=== PATIENT | male | born 1965 | race Caucasian/White ===

== ENCOUNTER 2023-07-17 03:16 | Emergency (ER) | payer MEDICARE, OTHER ==
[~2023-07-17] VITALS: Ht 175.3 cm; Wt 127.0 kg
[~2023-07-17 03:16] MED LIST: APIX5TAB PO; ASPI-1169 PO; ATOR40TA PO; FURO-144 PO; LISI10TA29 PO
[2023-07-17 03:18] VITALS: BP 170/77; TEMP 97.4; O2SAT 96
[2023-07-17 04:01] LABS: BASOPHILS % (AUTO) 0.6 % (0.0-2.0); EOSINOPHILS # (AUTO) 0.3 K/uL (0.0-0.7); EOSINOPHILS % (AUTO) 3.8 % (0.0-6.0); HEMATOCRIT 43 % (39-51); HEMOGLOBIN 13.7 g/dL (13.5-17.5); LYMPHOCYTES # (AUTO) 1.6 K/uL (0.8-4.8); LYMPHOCYTES % (AUTO) 20.7 % (20.0-44.0); MEAN CORPUSCULAR HEMOGLOBIN 25 PG (26.0-33.0); MEAN CORPUSCULAR HGB CONC 32 g/dl (31.0-36.0); MEAN CORPUSCULAR VOLUME 78 fL (80-96); MONOCYTES # (AUTO) 0.6 K/uL (0.1-1.30); MONOCYTES % (AUTO) 7.6 % (2.0-12.0); NEUTROPHILS # (AUTO) 5.3 K/uL (1.8-8.9); NEUTROPHILS % (AUTO) 67.3 % (43.0-81.0); PLATELET COUNT (AUTO) 371 K/uL (150-450); RED BLOOD CELL COUNT(AUTO) 5.47 MIL/uL (4.5-6.0); RED CELL DISTRIBUTION WIDTH 23.7 % (11.5-15.0); WHITE BLOOD COUNT (AUTO) 7.8 K/uL (4.3-11.0)
[2023-07-17 04:17] LABS: ALANINE AMINOTRANSFERASE 21 U/L (12-78); ALBUMIN 3.2 g/dL (3.4-5.0); ALCOHOL, BLOOD < 3 mg/dL (0-10); ALKALINE PHOSPHATASE 153 U/L (46-116); ASPARTATE AMINOTRANSFERASE 24 U/L (15-37); BILIRUBIN,TOTAL 1.1 mg/dL (0.2-1.0); CALCIUM, SERUM 8.8 mg/dL (8.5-10.1); CARBON DIOXIDE 23 mmol/L (21-32); CHLORIDE 103 mmol/L (98-107); CREATININE 0.6 mg/dL (0.6-1.3); GLUCOSE 106 mg/dL (74-106); POTASSIUM 3.7 mmol/L (3.5-5.1); SODIUM SERUM 135 mmol/L (136-145); TOTAL PROTEIN, SERUM 8.6 g/dL (6.4-8.2); UREA NITROGEN, BLOOD 22 mg/dL (7-18)
[2023-07-17] MEDS ORDERED: FUROSEMIDE 40 MG TABLET ONE (05:59)
[2023-07-17] MEDS ORDERED: FUROSEMIDE 40 MG/4 ML VIAL IV ONE (06:00)
[2023-07-17] MEDS ORDERED: FUROSEMIDE 40 MG TABLET PO ONE (06:00)
== END 2023-07-17 07:12 | disposition left against medical advice (07) ==
LOC: ER 03:18
DX: I11.0 Hypertensive heart disease with heart failure (principal); I50.9 Heart failure, unspecified; E11.9 Type 2 diabetes mellitus without complications; Z88.8 Allergy status to other drugs, medicaments and biological substances; Z59.00 Homelessness unspecified
CPT/HCPCS: 36415; 71045-TC; 80053-TC; 83880; 84484-TC; 85025-TC; 87081-TC; G0480

== ENCOUNTER 2024-03-03 11:11 | Inpatient (IN) | payer OTHER ==
[~2024-03-03] VITALS: Ht 172.7 cm; Wt 154.2 kg
[2024-03-03 13:11] LABS: ALANINE AMINOTRANSFERASE 21 U/L (12-78); ALBUMIN 3.1 g/dL (3.4-5.0); ALKALINE PHOSPHATASE 155 U/L (46-116); ASPARTATE AMINOTRANSFERASE 24 U/L (15-37); BASOPHILS # (AUTO) 0.1 K/uL (0.0-0.2); BASOPHILS % (AUTO) 0.6 % (0.0-2.0); BILIRUBIN,DIRECT 0.4 mg/dL (0.0-0.2); BILIRUBIN,TOTAL 0.8 mg/dL (0.2-1.0); CARBON DIOXIDE 30 mmol/L (21-32); CHLORIDE 103 mmol/L (98-107); EOSINOPHILS # (AUTO) 0.7 K/uL (0.0-0.7); EOSINOPHILS % (AUTO) 7.2 % (0.0-6.0); GLUCOSE 78 mg/dL (74-106); HEMATOCRIT 46 % (39-51); HEMOGLOBIN 14.4 g/dL (13.5-17.5); LYMPHOCYTES % (AUTO) 9.7 % (20.0-44.0); MEAN CORPUSCULAR HEMOGLOBIN 26 PG (26.0-33.0); MEAN CORPUSCULAR HGB CONC 32 g/dl (31.0-36.0); MEAN CORPUSCULAR VOLUME 81 fL (80-96); MONOCYTES # (AUTO) 0.8 K/uL (0.1-1.30); MONOCYTES % (AUTO) 8.3 % (2.0-12.0); NEUTROPHILS # (AUTO) 7.6 K/uL (1.8-8.9); NEUTROPHILS % (AUTO) 74.2 % (43.0-81.0); NT-PRO BNP 10914 pg/mL (0-125); PLATELET COUNT (AUTO) 297 K/uL (150-450); POTASSIUM 3.7 mmol/L (3.5-5.1); SODIUM SERUM 141 mmol/L (136-145); TOTAL PROTEIN, SERUM 8.7 g/dL (6.4-8.2); UREA NITROGEN, BLOOD 19 mg/dL (7-18); WHITE BLOOD COUNT (AUTO) 10.2 K/uL (4.3-11.0)
[2024-03-03] MEDS ORDERED: FUROSEMIDE 40 MG/4 ML VIAL ONE (14:55)
[2024-03-03] MEDS ORDERED: CLOPIDOGREL BISULFATE 75 MG TABLET ONE (14:58)
[2024-03-03] MEDS: FUROSEMIDE 40 MG/4 ML VIAL IV ONE (14:58)
[2024-03-03] MEDS: CLOPIDOGREL BISULFATE 75 MG TABLET PO ONE (15:22)
[2024-03-03] MEDS ORDERED: GUAI-717 PO (15:26)
[2024-03-03] MEDS ORDERED: OLME20TA23 PO (15:26)
[2024-03-03] MEDS ORDERED: AMIO200T5 PO (15:26)
[2024-03-03] MEDS ORDERED: METO25TA4 PO (15:26)
[2024-03-03] MEDS ORDERED: CLOP75TA15 PO (15:26)
[2024-03-03] MEDS ORDERED: ISOS30TA86 PO (15:26)
[2024-03-03] MEDS ORDERED: EMPA10TA PO (15:26)
[2024-03-03] MEDS ORDERED: ACETAMINOPHEN 325 MG TABLET PO PRN (15:30)
[2024-03-03] MEDS ORDERED: NITROGLYCERIN 0.4 MG/TAB BOTTLE SL PRN (15:30)
[2024-03-03] MEDS ORDERED: Z GUARD REMEDY 4 OZ OINT TP PRN (15:30)
[2024-03-03] MEDS ORDERED: MAG HYDROX/AL HYDROX/SIMETH 30 ML UDC PO PRN (15:30)
[2024-03-03] MEDS ORDERED: MAGNESIUM HYDROXIDE 30 ML UDC PO PRN (15:30)
[2024-03-03] MEDS ORDERED: ONDANSETRON HCL/PF 4 MG/2 ML VIAL IVP PRN (15:30)
[2024-03-03 16:25] VITALS: BP 120/81; TEMP 97.5; O2SAT 97
[2024-03-03] MEDS: APIXABAN 5 MG TABLET PO SCH (16:39)
[2024-03-03 20:00] VITALS: BP 116/70; TEMP 97.5; O2SAT 97
[2024-03-03] MEDS: ATORVASTATIN 40 MG TABLET PO SCH (22:00)
[2024-03-04] VITALS: BP 152/67; TEMP 97.5; O2SAT 96
[2024-03-04 04:00] VITALS: BP 145/79; TEMP 97.5; O2SAT 96
[2024-03-04 07:48] LABS: BASOPHILS # (AUTO) 0.1 K/uL (0.0-0.2); BASOPHILS % (AUTO) 0.7 % (0.0-2.0); EOSINOPHILS # (AUTO) 0.8 K/uL (0.0-0.7); EOSINOPHILS % (AUTO) 9.7 % (0.0-6.0); HEMATOCRIT 42 % (39-51); HEMOGLOBIN 13.4 g/dL (13.5-17.5); LYMPHOCYTES % (AUTO) 10.9 % (20.0-44.0); MEAN CORPUSCULAR HEMOGLOBIN 26 PG (26.0-33.0); MEAN CORPUSCULAR HGB CONC 32 g/dl (31.0-36.0); MEAN CORPUSCULAR VOLUME 80 fL (80-96); MONOCYTES # (AUTO) 0.5 K/uL (0.1-1.30); MONOCYTES % (AUTO) 6.1 % (2.0-12.0); NEUTROPHILS # (AUTO) 6.3 K/uL (1.8-8.9); NEUTROPHILS % (AUTO) 72.6 % (43.0-81.0); PLATELET COUNT (AUTO) 287 K/uL (150-450); RED CELL DISTRIBUTION WIDTH 18.2 % (11.5-15.0); WHITE BLOOD COUNT (AUTO) 8.7 K/uL (4.3-11.0)
[2024-03-04 08:00] VITALS: BP 120/80; TEMP 98.1; O2SAT 96
[2024-03-04 08:43] LABS: CALCIUM, SERUM 8.9 mg/dL (8.5-10.1); MAGNESIUM 2.3 mg/dL (1.8-2.4); PHOSPHORUS 4.2 mg/dL (2.5-4.9); POTASSIUM 3.9 mmol/L (3.5-5.1)
[2024-03-04] MEDS: FUROSEMIDE 40 MG TABLET PO SCH (09:00)
[2024-03-04] MEDS: ASPIRIN 81 MG TAB.CHEW PO SCH (09:30)
[2024-03-04] MEDS: LISINOPRIL (10MG) 10 MG TABLET PO SCH (09:30)
[2024-03-04] MEDS: METOPROLOL SUCCINATE 25 MG TAB.SR.24H PO SCH (10:30)
[2024-03-04] MEDS: CLOPIDOGREL BISULFATE 75 MG TABLET PO SCH (11:46)
[2024-03-04] MEDS: ISOSORBIDE MONONITRATE (30MG) 30 MG TAB.SR.24H PO SCH (11:46)
[2024-03-04] MEDS: EMPAGLIFLOZIN 10 MG TABLET PO SCH (11:47)
[2024-03-04 12:00] VITALS: BP 106/46; TEMP 98.1; O2SAT 96
[2024-03-04 16:00] VITALS: BP 104/64; TEMP 98.1; O2SAT 96
[2024-03-04 20:00] VITALS: BP 91/80; TEMP 98.1; O2SAT 96
[2024-03-05] VITALS: BP_DIAS 80; TEMP 98.1; O2SAT 96
[2024-03-05 04:00] VITALS: TEMP 98.1; O2SAT 96
[2024-03-05 08:00] VITALS: BP 112/70; TEMP 97.9; O2SAT 92
[2024-03-05] MEDS: ARIPIPRAZOLE 5 MG TABLET PO SCH (11:40)
[2024-03-05 12:00] VITALS: BP 112/70; TEMP 97.9; O2SAT 92
[2024-03-05 16:00] VITALS: BP 112/60; TEMP 98.7; O2SAT 91
[2024-03-05 20:00] VITALS: BP 144/77; TEMP 98.6; O2SAT 95
[2024-03-06 04:00] VITALS: BP 142/63; TEMP 98.1; O2SAT 96
[2024-03-06 08:30] VITALS: BP 130/72; TEMP 97.3; O2SAT 93
[2024-03-06] MEDS: SERTRALINE HCL 50 MG TABLET PO SCH (08:33)
[2024-03-06 09:55] LABS: BASOPHILS # (AUTO) 0.1 K/uL (0.0-0.2); BASOPHILS % (AUTO) 0.8 % (0.0-2.0); EOSINOPHILS # (AUTO) 0.6 K/uL (0.0-0.7); EOSINOPHILS % (AUTO) 8.2 % (0.0-6.0); HEMATOCRIT 43 % (39-51); HEMOGLOBIN 13.7 g/dL (13.5-17.5); LYMPHOCYTES # (AUTO) 0.8 K/uL (0.8-4.8); LYMPHOCYTES % (AUTO) 11.1 % (20.0-44.0); MEAN CORPUSCULAR HEMOGLOBIN 26 PG (26.0-33.0); MEAN CORPUSCULAR HGB CONC 32 g/dl (31.0-36.0); MEAN CORPUSCULAR VOLUME 79 fL (80-96); MONOCYTES # (AUTO) 0.4 K/uL (0.1-1.30); MONOCYTES % (AUTO) 5.8 % (2.0-12.0); NEUTROPHILS # (AUTO) 5.3 K/uL (1.8-8.9); NEUTROPHILS % (AUTO) 74.1 % (43.0-81.0); PLATELET COUNT (AUTO) 288 K/uL (150-450); RED BLOOD CELL COUNT(AUTO) 5.36 MIL/uL (4.5-6.0); WHITE BLOOD COUNT (AUTO) 7.2 K/uL (4.3-11.0)
[2024-03-06 10:09] LABS: CALCIUM, SERUM 8.9 mg/dL (8.5-10.1); MAGNESIUM 2.4 mg/dL (1.8-2.4); PHOSPHORUS 3.4 mg/dL (2.5-4.9); POTASSIUM 3.9 mmol/L (3.5-5.1)
[2024-03-06 12:00] VITALS: BP 132/64
[2024-03-06] MEDS ORDERED: APIX5TAB PO (12:54)
[2024-03-06] MEDS ORDERED: ARIP5TAB10 PO (12:54)
[2024-03-06] MEDS ORDERED: LISI10TA29 PO (12:54)
== END 2024-03-06 16:10 | disposition home or self-care (01) | DRG 291 ==
LOC: ER 11:20 → TELE1 15:05 → MEDSG1 03-05 10:00
PROVIDERS: ADMIT Internal Medicine; ATTEND Student in an Organized Health Care Education/Training Program
DX: I11.0 Hypertensive heart disease with heart failure (principal); E43 Unspecified severe protein-calorie malnutrition; I50.43 Acute on chronic combined systolic (congestive) and diastolic (congestive) heart failure; I48.92 Unspecified atrial flutter; Z68.43 Body mass index [BMI] 50.0-59.9, adult; Z59.00 Homelessness unspecified; F33.3 Major depressive disorder, recurrent, severe with psychotic symptoms; F43.10 Post-traumatic stress disorder, unspecified; I48.91 Unspecified atrial fibrillation; I87.309 Chronic venous hypertension (idiopathic) without complications of unspecified lower extremity; I87.2 Venous insufficiency (chronic) (peripheral); Z66 Do not resuscitate; E11.9 Type 2 diabetes mellitus without complications; E78.5 Hyperlipidemia, unspecified; Z88.1 Allergy status to other antibiotic agents; Z79.82 Long term (current) use of aspirin; Z79.01 Long term (current) use of anticoagulants; Z79.899 Other long term (current) drug therapy; E66.01 Morbid (severe) obesity due to excess calories; E88.09 Other disorders of plasma-protein metabolism, not elsewhere classified; I25.2 Old myocardial infarction; I42.0 Dilated cardiomyopathy; I35.2 Nonrheumatic aortic (valve) stenosis with insufficiency; G47.33 Obstructive sleep apnea (adult) (pediatric); I25.10 Atherosclerotic heart disease of native coronary artery without angina pectoris; Z79.84 Long term (current) use of oral hypoglycemic drugs
CPT/HCPCS: 36415; 71045-TC; 80048-TC; 80076-TC; 83735-TC; 83880; 84100-TC; 84484-TC; 85025-TC; 93307-TC; 97110-TC; 97116-TC; 97530-TC; 98960; G0378; J1940

== ENCOUNTER 2024-03-20 05:53 | Inpatient (IN) | payer MEDICARE, OTHER ==
[~2024-03-20] VITALS: Ht 193 cm; Wt 163.8 kg
[2024-03-20] VITALS (11 sets, daily range): BP systolic 101–123; BP diastolic 69–75; TEMP 97.5–98.7; O2SAT 96–100
[~2024-03-20 05:53] MED LIST changes: +AMIO200T5 PO; +ARIP5TAB10 PO; -ASPI-1169 PO; +CLOP75TA15 PO; +EMPA10TA PO; +GUAI-717 PO; +ISOS30TA86 PO; +METO25TA4 PO; +OLME20TA23 PO
[2024-03-20 07:34] LABS: ALANINE AMINOTRANSFERASE 17 U/L (12-78); ALBUMIN 2.9 g/dL (3.4-5.0); ALKALINE PHOSPHATASE 113 U/L (46-116); ASPARTATE AMINOTRANSFERASE 26 U/L (15-37); BASOPHILS % (AUTO) 0.4 % (0.0-2.0); BILIRUBIN,DIRECT 0.4 mg/dL (0.0-0.2); CALCIUM, SERUM 8.6 mg/dL (8.5-10.1); CARBON DIOXIDE 30 mmol/L (21-32); CHLORIDE 106 mmol/L (98-107); CREATININE 0.9 mg/dL (0.6-1.3); EOSINOPHILS # (AUTO) 0.4 K/uL (0.0-0.7); EOSINOPHILS % (AUTO) 4.8 % (0.0-6.0); GLUCOSE 96 mg/dL (74-106); HEMATOCRIT 43 % (39-51); HEMOGLOBIN 13.6 g/dL (13.5-17.5); MEAN CORPUSCULAR HEMOGLOBIN 25 PG (26.0-33.0); MEAN CORPUSCULAR HGB CONC 32 g/dl (31.0-36.0); MEAN CORPUSCULAR VOLUME 81 fL (80-96); MONOCYTES # (AUTO) 0.6 K/uL (0.1-1.30); MONOCYTES % (AUTO) 6.6 % (2.0-12.0); NEUTROPHILS # (AUTO) 6.8 K/uL (1.8-8.9); NEUTROPHILS % (AUTO) 77.2 % (43.0-81.0); NT-PRO BNP 13641 pg/mL (0-125); PLATELET COUNT (AUTO) 250 K/uL (150-450); POTASSIUM 4.6 mmol/L (3.5-5.1); RED BLOOD CELL COUNT(AUTO) 5.34 MIL/uL (4.5-6.0); RED CELL DISTRIBUTION WIDTH 18.9 % (11.5-15.0); SODIUM SERUM 141 mmol/L (136-145); TOTAL PROTEIN, SERUM 7.8 g/dL (6.4-8.2); UREA NITROGEN, BLOOD 17 mg/dL (7-18); WHITE BLOOD COUNT (AUTO) 8.8 K/uL (4.3-11.0)
[2024-03-20] MEDS ORDERED: SERT50TA12 PO (07:57)
[2024-03-20] MEDS ORDERED: IPRATROPIUM NEB FS 0.5 MG/2.5 ML AMPUL.NEB ONE (07:57)
[2024-03-20] MEDS ORDERED: ALBUTEROL FS 2.5 MG/3 ML VIAL.NEB ONE (07:57)
[2024-03-20] MEDS: ALBUTEROL FS 2.5 MG/3 ML VIAL.NEB NEB ONE ×2 (08:03)
[2024-03-20] MEDS: IPRATROPIUM NEB FS 0.5 MG/2.5 ML AMPUL.NEB NEB ONE (08:03)
[2024-03-20] MEDS ORDERED: FUROSEMIDE 40 MG/4 ML VIAL ONE (08:04)
[2024-03-20] MEDS: FUROSEMIDE 40 MG/4 ML VIAL IV ONE ×2 (08:10→20:41)
[2024-03-20] MEDS ORDERED: hydrALAZINE HCL IV 20 MG VIAL IV PRN (08:30)
[2024-03-20] MEDS ORDERED: ONDANSETRON HCL/PF 4 MG/2 ML VIAL IVP PRN (08:30)
[2024-03-20] MEDS ORDERED: ACETAMINOPHEN 325 MG TABLET PO PRN (08:30)
[2024-03-20] MEDS ORDERED: ALBUTEROL FS 2.5 MG/0.5 ML VIAL.NEB NEB PRN (08:30)
[2024-03-20] MEDS ORDERED: IPRATROPIUM/ALBUTEROL INHALER IH SCH (12:00)
[2024-03-20] MEDS: ARIPIPRAZOLE 5 MG TABLET PO SCH (12:09)
[2024-03-20] MEDS: LISINOPRIL (10MG) 10 MG TABLET PO SCH (12:09)
[2024-03-20] MEDS: METOPROLOL SUCCINATE 25 MG TAB.SR.24H PO SCH (12:11)
[2024-03-20] MEDS: GUAIFENESIN/D-METHORPHAN HB 5 ML UDC PO PRN (12:11)
[2024-03-20] MEDS: APIXABAN 5 MG TABLET PO SCH (12:11)
[2024-03-20] MEDS: EMPAGLIFLOZIN 10 MG TABLET PO SCH (12:14)
[2024-03-20] MEDS: ISOSORBIDE MONONITRATE (30MG) 30 MG TAB.SR.24H PO SCH (13:06)
[2024-03-20] MEDS: FUROSEMIDE 40 MG/4 ML VIAL IV SCH (13:06)
[2024-03-20] MEDS: IPRATROPIUM NEB FS 0.5 MG/2.5 ML AMPUL.NEB NEB SCH (13:30)
[2024-03-20] MEDS: ALBUTEROL FS 2.5 MG/3 ML VIAL.NEB NEB SCH (13:43)
[2024-03-20] MEDS: BENZONATATE 100 MG CAPSULE PO PRN (20:41)
[2024-03-20] MEDS: ATORVASTATIN 40 MG TABLET PO SCH (22:00)
[2024-03-21] VITALS (13 sets, daily range): BP systolic 98–119; BP diastolic 49–101; TEMP 97.9–98.4; O2SAT 94–100
[2024-03-21] MEDS: MORPHINE SULFATE INJ 2 MG/ML DISP.SYRIN IV PRN (02:52)
[2024-03-21 06:35] LABS: BASOPHILS % (AUTO) 0.3 % (0.0-2.0); EOSINOPHILS # (AUTO) 0.3 K/uL (0.0-0.7); EOSINOPHILS % (AUTO) 3.4 % (0.0-6.0); HEMATOCRIT 39 % (39-51); HEMOGLOBIN 12.8 g/dL (13.5-17.5); LYMPHOCYTES # (AUTO) 0.7 K/uL (0.8-4.8); LYMPHOCYTES % (AUTO) 7.9 % (20.0-44.0); MEAN CORPUSCULAR HEMOGLOBIN 26 PG (26.0-33.0); MEAN CORPUSCULAR HGB CONC 33 g/dl (31.0-36.0); MEAN CORPUSCULAR VOLUME 80 fL (80-96); MONOCYTES # (AUTO) 0.5 K/uL (0.1-1.30); MONOCYTES % (AUTO) 5.3 % (2.0-12.0); NEUTROPHILS # (AUTO) 7.1 K/uL (1.8-8.9); NEUTROPHILS % (AUTO) 83.1 % (43.0-81.0); PLATELET COUNT (AUTO) 215 K/uL (150-450); RED BLOOD CELL COUNT(AUTO) 4.89 MIL/uL (4.5-6.0); RED CELL DISTRIBUTION WIDTH 18.4 % (11.5-15.0); WHITE BLOOD COUNT (AUTO) 8.5 K/uL (4.3-11.0)
[2024-03-21 06:42] LABS: ALBUMIN 2.7 g/dL (3.4-5.0); BILIRUBIN,TOTAL 0.8 mg/dL (0.2-1.0); CALCIUM, SERUM 8.4 mg/dL (8.5-10.1); CREATININE 1.2 mg/dL (0.6-1.3); MAGNESIUM 2.1 mg/dL (1.8-2.4); PHOSPHORUS 5.6 mg/dL (2.5-4.9); POTASSIUM 4.1 mmol/L (3.5-5.1); TOTAL PROTEIN, SERUM 7.3 g/dL (6.4-8.2)
[2024-03-21] MEDS: SERTRALINE HCL 25 MG TABLET PO SCH (09:48)
[2024-03-21] MEDS: CLOTRIMAZOLE 1% 15 GM TUBE TP SCH (13:12)
[2024-03-21] MEDS: TRIAMCINOLONE ACETONIDE 0.1% CR 15 GM TUBE TP SCH (13:13)
[2024-03-22] VITALS (9 sets, daily range): BP systolic 102–119; BP diastolic 69–77; TEMP 97.7–97.9; O2SAT 94–98
[2024-03-22] MEDS: FUROSEMIDE 40 MG/4 ML VIAL IV SCH (09:00)
[2024-03-22 09:52] LABS: THYROID STIMULATING HORMONE 0.88 uIU/mL (0.358-3.74)
[2024-03-22] MEDS: POTASSIUM CHLORIDE 20 MEQ TAB.PRT.SR PO SCH (09:55)
[2024-03-22 11:18] LABS: CALCIUM, SERUM 8.6 mg/dL (8.5-10.1); CREATININE 0.9 mg/dL (0.6-1.3); POTASSIUM 4.2 mmol/L (3.5-5.1)
[2024-03-22 11:24] LABS: ALBUMIN 2.6 g/dL (3.4-5.0); BILIRUBIN,TOTAL 0.9 mg/dL (0.2-1.0); TOTAL PROTEIN, SERUM 7.1 g/dL (6.4-8.2)
[2024-03-22 15:44] LABS: APPEARANCE,URINE CLEAR (CLEAR); BILIRUBIN,URINE NEGATIVE (NEGATIVE); BLOOD, URINE NEGATIVE Ery/uL (NEGATIVE); COLOR,URINE YELLOW (YELLOW); KETONES,URINE NEGATIVE (NEGATIVE); LEUKOCYTE ESTERASE ,URINE NEGATIVE (NEGATIVE); NITRITE, URINE NEGATIVE (NEGATIVE); PROTEIN,URINE 1+ mg/dl (NEGATIVE); UGLUCOSE 3+ mg/dL (NEGATIVE)
[2024-03-22 15:56] LABS: ADD URINE CULTURE NO; BACTERIA,URINE Few /HPF (None Seen); RBC,URINE 0-2 /HPF (0-2); SQUAMOUS EPITHELIAL CELL,UR Few /HPF (None Seen); WBC,URINE 0-2 /HPF (0-3)
[2024-03-22] MEDS: LACTULOSE 10 G/15 ML UDC (PYXIS) PO ONE (18:49)
[2024-03-22] MEDS: POLYETHYLENE GLYCOL 3350 17 GM POWD.PACK PO SCH (21:31)
[2024-03-23] VITALS (10 sets, daily range): BP systolic 121–134; BP diastolic 69–79; TEMP 97.7–98.2; O2SAT 90–99
[2024-03-23 06:14] LABS: BASOPHILS % (AUTO) 0.5 % (0.0-2.0); EOSINOPHILS # (AUTO) 0.2 K/uL (0.0-0.7); HEMATOCRIT 39 % (39-51); HEMOGLOBIN 12.2 g/dL (13.5-17.5); LYMPHOCYTES # (AUTO) 0.6 K/uL (0.8-4.8); LYMPHOCYTES % (AUTO) 7.2 % (20.0-44.0); MEAN CORPUSCULAR HEMOGLOBIN 25 PG (26.0-33.0); MEAN CORPUSCULAR HGB CONC 31 g/dl (31.0-36.0); MEAN CORPUSCULAR VOLUME 80 fL (80-96); MONOCYTES # (AUTO) 0.4 K/uL (0.1-1.30); MONOCYTES % (AUTO) 4.6 % (2.0-12.0); NEUTROPHILS # (AUTO) 6.4 K/uL (1.8-8.9); NEUTROPHILS % (AUTO) 84.7 % (43.0-81.0); PLATELET COUNT (AUTO) 197 K/uL (150-450); RED BLOOD CELL COUNT(AUTO) 4.83 MIL/uL (4.5-6.0); RED CELL DISTRIBUTION WIDTH 18.1 % (11.5-15.0); WHITE BLOOD COUNT (AUTO) 7.6 K/uL (4.3-11.0)
[2024-03-23 06:31] LABS: ALBUMIN 2.7 g/dL (3.4-5.0); BILIRUBIN,TOTAL 0.9 mg/dL (0.2-1.0); CALCIUM, SERUM 8.4 mg/dL (8.5-10.1); CREATININE 0.8 mg/dL (0.6-1.3); MAGNESIUM 2.3 mg/dL (1.8-2.4); PHOSPHORUS 2.7 mg/dL (2.5-4.9); POTASSIUM 4.2 mmol/L (3.5-5.1); TOTAL PROTEIN, SERUM 7.4 g/dL (6.4-8.2)
[2024-03-23] MEDS: DOCUSATE SODIUM 100 MG CAPSULE PO SCH (10:08)
[2024-03-23] MEDS: FUROSEMIDE 40 MG TABLET PO ONE (11:23)
== END 2024-03-23 20:54 | DRG 291 ==
LOC: ER 05:55 → MED 10:02 → TELE 11:03
PROVIDERS: ADMIT Internal Medicine; ATTEND Internal Medicine
DX: I11.0 Hypertensive heart disease with heart failure (principal); E43 Unspecified severe protein-calorie malnutrition; I50.33 Acute on chronic diastolic (congestive) heart failure; I48.92 Unspecified atrial flutter; Z59.00 Homelessness unspecified; Z68.41 Body mass index [BMI] 40.0-44.9, adult; I48.91 Unspecified atrial fibrillation; E11.42 Type 2 diabetes mellitus with diabetic polyneuropathy; E66.01 Morbid (severe) obesity due to excess calories; E78.5 Hyperlipidemia, unspecified; E88.09 Other disorders of plasma-protein metabolism, not elsewhere classified; F43.10 Post-traumatic stress disorder, unspecified; G47.33 Obstructive sleep apnea (adult) (pediatric); Z79.01 Long term (current) use of anticoagulants; Z20.822 Contact with and (suspected) exposure to COVID-19; I35.2 Nonrheumatic aortic (valve) stenosis with insufficiency; I87.2 Venous insufficiency (chronic) (peripheral); I42.9 Cardiomyopathy, unspecified; Z91.199 Patient's noncompliance with other medical treatment and regimen due to unspecified reason; I25.2 Old myocardial infarction; Z66 Do not resuscitate; Z79.84 Long term (current) use of oral hypoglycemic drugs
CPT/HCPCS: 36415; 71045-TC; 80048-TC; 80053-TC; 80061-TC; 80076-TC; 81001; 83735-TC; 83880; 84100-TC; 84439-TC; 84443-TC; 84484-TC; 85025-TC; 87081-TC; 94762-TC; 94799-TC; G0378; J1940; J2270

== ENCOUNTER 2024-05-26 23:36 | Inpatient (IN) | payer MEDICARE, OTHER ==
[~2024-05-26] VITALS: Ht 188 cm; Wt 172.1 kg
[~2024-05-26 23:36] MED LIST changes: -AMIO200T5 PO; -CLOP75TA15 PO; -OLME20TA23 PO; +SERT50TA12 PO
[2024-05-27] MEDS ORDERED: FUROSEMIDE 40 MG/4 ML VIAL ONE (00:41)
[2024-05-27] MEDS: FUROSEMIDE 40 MG/4 ML VIAL IV ONE (00:50)
[2024-05-27 00:51] LABS: BASOPHILS % (AUTO) 0.6 % (0.0-2.0); EOSINOPHILS # (AUTO) 0.1 K/uL (0.0-0.7); EOSINOPHILS % (AUTO) 1.2 % (0.0-6.0); HEMATOCRIT 37 % (39-51); HEMOGLOBIN 11.8 g/dL (13.5-17.5); LYMPHOCYTES # (AUTO) 0.4 K/uL (0.8-4.8); LYMPHOCYTES % (AUTO) 5.5 % (20.0-44.0); MEAN CORPUSCULAR HEMOGLOBIN 25 PG (26.0-33.0); MEAN CORPUSCULAR HGB CONC 32 g/dl (31.0-36.0); MEAN CORPUSCULAR VOLUME 78 fL (80-96); MONOCYTES # (AUTO) 0.3 K/uL (0.1-1.30); MONOCYTES % (AUTO) 4.8 % (2.0-12.0); NEUTROPHILS # (AUTO) 5.7 K/uL (1.8-8.9); NEUTROPHILS % (AUTO) 87.9 % (43.0-81.0); PLATELET COUNT (AUTO) 173 K/uL (150-450); RED BLOOD CELL COUNT(AUTO) 4.76 MIL/uL (4.5-6.0); RED CELL DISTRIBUTION WIDTH 19.5 % (11.5-15.0); WHITE BLOOD COUNT (AUTO) 6.5 K/uL (4.3-11.0)
[2024-05-27 01:13] LABS: ALBUMIN 2.7 g/dL (3.4-5.0); BILIRUBIN,TOTAL 2.2 mg/dL (0.2-1.0); CALCIUM, SERUM 8.4 mg/dL (8.5-10.1); CREATININE 0.9 mg/dL (0.6-1.3); TOTAL PROTEIN, SERUM 7.3 g/dL (6.4-8.2)
[2024-05-27] MEDS ORDERED: MAG HYDROX/AL HYDROX/SIMETH 30 ML UDC PO PRN (04:30)
[2024-05-27] MEDS ORDERED: ONDANSETRON HCL/PF 4 MG/2 ML VIAL IVP PRN (04:30)
[2024-05-27] MEDS ORDERED: NITROGLYCERIN 0.4 MG/TAB BOTTLE SL PRN (04:30)
[2024-05-27] MEDS ORDERED: Z GUARD REMEDY 4 OZ OINT TP PRN (04:30)
[2024-05-27] MEDS ORDERED: ACETAMINOPHEN 325 MG TABLET PO PRN (04:30)
[2024-05-27 08:35] LABS: BASOPHILS % (AUTO) 0.4 % (0.0-2.0); EOSINOPHILS # (AUTO) 0.1 K/uL (0.0-0.7); HEMATOCRIT 38 % (39-51); LYMPHOCYTES # (AUTO) 0.4 K/uL (0.8-4.8); LYMPHOCYTES % (AUTO) 7.2 % (20.0-44.0); MEAN CORPUSCULAR HEMOGLOBIN 25 PG (26.0-33.0); MEAN CORPUSCULAR HGB CONC 32 g/dl (31.0-36.0); MEAN CORPUSCULAR VOLUME 78 fL (80-96); MONOCYTES # (AUTO) 0.3 K/uL (0.1-1.30); MONOCYTES % (AUTO) 5.8 % (2.0-12.0); NEUTROPHILS # (AUTO) 4.3 K/uL (1.8-8.9); NEUTROPHILS % (AUTO) 84.6 % (43.0-81.0); PLATELET COUNT (AUTO) 168 K/uL (150-450); RED BLOOD CELL COUNT(AUTO) 4.86 MIL/uL (4.5-6.0); WHITE BLOOD COUNT (AUTO) 5.1 K/uL (4.3-11.0)
[2024-05-27 08:54] LABS: CALCIUM, SERUM 8.3 mg/dL (8.5-10.1); CARBON DIOXIDE 30 mmol/L (21-32); CHLORIDE 103 mmol/L (98-107); CREATININE 0.9 mg/dL (0.6-1.3); GLUCOSE 90 mg/dL (74-106); MAGNESIUM 1.8 mg/dL (1.8-2.4); PHOSPHORUS 4.2 mg/dL (2.5-4.9); POTASSIUM 3.9 mmol/L (3.5-5.1); SODIUM SERUM 140 mmol/L (136-145); UREA NITROGEN, BLOOD 16 mg/dL (7-18)
[2024-05-27] MEDS ORDERED: ENOXAPARIN SODIUM 40 MG/0.4 ML DISP.SYRIN SQ SCH (09:30)
[2024-05-27] MEDS ORDERED: DEXTROSE 50%-WATER 50 ML DISP.SYRIN IV PRN (09:30)
[2024-05-27] MEDS: FUROSEMIDE 20 MG/2 ML VIAL IV SCH ×2 (09:59→17:29)
[2024-05-27] MEDS: SERTRALINE HCL 50 MG TABLET PO SCH (10:15)
[2024-05-27] MEDS: METOPROLOL SUCCINATE 25 MG TAB.SR.24H PO SCH (10:16)
[2024-05-27] MEDS: LISINOPRIL (10MG) 10 MG TABLET PO SCH (10:16)
[2024-05-27] MEDS: ARIPIPRAZOLE 5 MG TABLET PO SCH (10:16)
[2024-05-27] MEDS: APIXABAN 5 MG TABLET PO SCH (10:20)
[2024-05-27] MEDS: BLOOD SUGAR DIAGNOSTIC 1 EACH STRIP VI SCH (12:00)
[2024-05-27] MEDS: ISOSORBIDE MONONITRATE (30MG) 30 MG TAB.SR.24H PO SCH (13:41)
[2024-05-27 20:00] VITALS: BP 120/61; TEMP 98.1; O2SAT 97
[2024-05-27] MEDS: ATORVASTATIN 40 MG TABLET PO SCH (22:00)
[2024-05-28] VITALS: BP_SYST 123; BP_SYST 128; BP_DIAS 69; TEMP 97.9; O2SAT 96
[2024-05-28 04:00] VITALS: BP 123/70; TEMP 97.9; O2SAT 96
[2024-05-28 06:41] LABS: BASOPHILS % (AUTO) 0.5 % (0.0-2.0); EOSINOPHILS # (AUTO) 0.1 K/uL (0.0-0.7); EOSINOPHILS % (AUTO) 3.3 % (0.0-6.0); HEMATOCRIT 36 % (39-51); HEMOGLOBIN 11.1 g/dL (13.5-17.5); LYMPHOCYTES # (AUTO) 0.4 K/uL (0.8-4.8); LYMPHOCYTES % (AUTO) 9.7 % (20.0-44.0); MEAN CORPUSCULAR HEMOGLOBIN 24 PG (26.0-33.0); MEAN CORPUSCULAR HGB CONC 31 g/dl (31.0-36.0); MEAN CORPUSCULAR VOLUME 78 fL (80-96); MONOCYTES # (AUTO) 0.3 K/uL (0.1-1.30); MONOCYTES % (AUTO) 7.4 % (2.0-12.0); NEUTROPHILS # (AUTO) 3.2 K/uL (1.8-8.9); NEUTROPHILS % (AUTO) 79.1 % (43.0-81.0); PLATELET COUNT (AUTO) 171 K/uL (150-450); RED BLOOD CELL COUNT(AUTO) 4.57 MIL/uL (4.5-6.0); RED CELL DISTRIBUTION WIDTH 19.1 % (11.5-15.0); WHITE BLOOD COUNT (AUTO) 4.1 K/uL (4.3-11.0)
[2024-05-28 07:00] VITALS: BP 114/70; TEMP 97.9; O2SAT 94
[2024-05-28 07:07] LABS: CALCIUM, SERUM 8.1 mg/dL (8.5-10.1); CREATININE 0.9 mg/dL (0.6-1.3); MAGNESIUM 1.8 mg/dL (1.8-2.4); PHOSPHORUS 4.2 mg/dL (2.5-4.9); POTASSIUM 3.8 mmol/L (3.5-5.1)
[2024-05-28] MEDS: PANTOPRAZOLE 40 MG TABLET.DR PO SCH (07:30)
[2024-05-28] MEDS ORDERED: ACET325T53 PO ×2 (09:22)
[2024-05-28] MEDS ORDERED: VITS42.53 TP (09:22)
[2024-05-28] MEDS ORDERED: ASPI-1169 PO (09:22)
[2024-05-28] MEDS ORDERED: MAGN400O6 PO (09:22)
[2024-05-28] MEDS ORDERED: BISA10SU11 RC (09:22)
[2024-05-28] MEDS ORDERED: FURO20TA4 PO (09:22)
[2024-05-28] MEDS ORDERED: ASCO500T10 PO (09:22)
[2024-05-28] MEDS ORDERED: HONE44PA TP (09:22)
[2024-05-28] MEDS ORDERED: SPIR25TA6 PO (09:22)
[2024-05-28] MEDS ORDERED: LOSA25TA27 PO (09:22)
[2024-05-28] MEDS ORDERED: NA P133E RC (09:22)
[2024-05-28] MEDS ORDERED: MULT-213 PO (09:22)
[2024-05-28] MEDS ORDERED: HYDR-4076 PO (09:22)
[2024-05-28] MEDS ORDERED: NITR0.4T48 SL (09:22)
[2024-05-28] MEDS ORDERED: IPRA3AMP23 IH (09:22)
[2024-05-28] MEDS ORDERED: POVI1MED TP (09:22)
[2024-05-28] MEDS ORDERED: ZINC56.713 TP (09:22)
[2024-05-28] MEDS: INSULIN REGULAR, HUMAN 100 UNIT/ML 3 ML VIAL SQ PRN (11:54)
[2024-05-28 12:00] VITALS: BP 103/61; TEMP 98.1; O2SAT 98
[2024-05-28 16:00] VITALS: BP 103/67; TEMP 97.5; O2SAT 97
[2024-05-28] MEDS: MAGNESIUM HYDROXIDE 30 ML UDC PO PRN (16:52)
[2024-05-28 20:00] VITALS: BP 97/60; TEMP 98.1; O2SAT 99
[2024-05-29] VITALS: BP 104/62; TEMP 97.9; O2SAT 98
[2024-05-29 04:00] VITALS: BP_SYST 101; BP_SYST 107; BP_DIAS 67; TEMP 97.7; O2SAT 98
[2024-05-29 08:00] VITALS: BP 125/79; TEMP 97.7; O2SAT 97
[2024-05-29 12:00] VITALS: BP 118/56; TEMP 97.8
[2024-05-29 16:00] VITALS: BP 110/67; TEMP 97.7
[2024-05-29 20:00] VITALS: BP 102/63; TEMP 97.7; O2SAT 96
[2024-05-29] MEDS: *INSULIN REGULAR(HUMULIN R)HUM 100 UNIT/ML VIAL SQ PRN (21:37)
[2024-05-30] VITALS: BP 114/66; TEMP 97.6; O2SAT 98
[2024-05-30] MEDS: IPRATROPIUM/ALBUTEROL INHALER IH SCH
[2024-05-30 04:00] VITALS: BP 119/68; TEMP 97.8; O2SAT 96
[2024-05-30 07:00] VITALS: BP 132/79; TEMP 97.3; O2SAT 97
[2024-05-30 11:30] VITALS: BP 115/59; TEMP 97.5; O2SAT 91
[2024-05-30 16:00] VITALS: BP 130/82; TEMP 97.7; O2SAT 93
[2024-05-30 20:29] VITALS: BP 116/79; TEMP 97.3; O2SAT 98
[2024-05-31 05:48] VITALS: BP 152/90; TEMP 97.5; O2SAT 99
[2024-05-31 08:00] VITALS: BP 145/93; TEMP 98.3; O2SAT 96
[2024-05-31] MEDS ORDERED: FURO-144 PO (10:32)
[2024-05-31 16:00] VITALS: BP 132/77; TEMP 98.3; O2SAT 97
[2024-05-31 20:00] VITALS: BP 137/81; TEMP 97.7; O2SAT 99
== END 2024-06-01 10:30 | DRG 291 ==
LOC: ER 23:37 → TRANSITION 05-27 03:21 → TELE 05-27 09:16 → MED 05-27 20:23 → TELE 05-27 20:25 → MED 05-31 13:28
PROVIDERS: ADMIT Nurse Practitioner Acute Care
DX: I11.0 Hypertensive heart disease with heart failure (principal); I50.23 Acute on chronic systolic (congestive) heart failure; J96.21 Acute and chronic respiratory failure with hypoxia; E44.0 Moderate protein-calorie malnutrition; D68.59 Other primary thrombophilia; E66.2 Morbid (severe) obesity with alveolar hypoventilation; Z59.00 Homelessness unspecified; I25.10 Atherosclerotic heart disease of native coronary artery without angina pectoris; I35.2 Nonrheumatic aortic (valve) stenosis with insufficiency; I48.91 Unspecified atrial fibrillation; Z79.01 Long term (current) use of anticoagulants; E11.42 Type 2 diabetes mellitus with diabetic polyneuropathy; D50.9 Iron deficiency anemia, unspecified; E78.5 Hyperlipidemia, unspecified; E88.09 Other disorders of plasma-protein metabolism, not elsewhere classified; I42.7 Cardiomyopathy due to drug and external agent; T50.905A Adverse effect of unspecified drugs, medicaments and biological substances, initial encounter; Y92.9 Unspecified place or not applicable; S81.812A Laceration without foreign body, left lower leg, initial encounter; X58.XXXA Exposure to other specified factors, initial encounter; F43.10 Post-traumatic stress disorder, unspecified; I87.2 Venous insufficiency (chronic) (peripheral); Z72.0 Tobacco use; Z79.84 Long term (current) use of oral hypoglycemic drugs; Z79.899 Other long term (current) drug therapy; Z88.6 Allergy status to analgesic agent; Z88.1 Allergy status to other antibiotic agents; Z88.5 Allergy status to narcotic agent; Z91.018 Allergy to other foods; Z99.81 Dependence on supplemental oxygen
CPT/HCPCS: 36415; 71045-TC; 80048-TC; 80053-TC; 83735-TC; 83880; 84100-TC; 84484-TC; 85025-TC; 85378-TC; 87081-TC; 93307-TC; 93970-TC; 94799-TC; A6403; G0378; J1815; J1940; J2405